=== PATIENT | female | born 1940 | race Two or more races ===

== ENCOUNTER 2025-08-01 12:18 | Emergency (ER) | payer MEDICARE, BC ==
[~2025-08-01] VITALS: Ht 170.2 cm; Wt 52.2 kg
[2025-08-01] MEDS ORDERED: HYDROCODONE/APAP 10/325MG TABLET ONE (14:04)
[2025-08-01] MEDS: HYDROCODONE/APAP 10/325MG TABLET PO ONE (14:15)
[2025-08-01 15:16] VITALS: BP 125/68; TEMP 97.9; O2SAT 99
== END 2025-08-01 15:16 | disposition home or self-care (01) ==
LOC: ER 12:38
DX: S20.229A Contusion of unspecified back wall of thorax, initial encounter (principal); Z88.1 Allergy status to other antibiotic agents; W10.9XXA Fall (on) (from) unspecified stairs and steps, initial encounter; Y93.89 Activity, other specified; Y92.89 Other specified places as the place of occurrence of the external cause; Y99.8 Other external cause status
CPT/HCPCS: 72128-TC; 72131-TC

== ENCOUNTER 2025-08-04 00:56 | Inpatient (IN) | payer BC, MEDICARE ==
[~2025-08-04] VITALS: Ht 170.2 cm; Wt 54.4 kg
[2025-08-04 01:42] LABS: PLATELET COUNT (AUTO) 209 K/uL (150-450); RED BLOOD CELL COUNT(AUTO) 4.13 MIL/uL (4.0-5.2); RED CELL DISTRIBUTION WIDTH 13.4 % (11.5-15.0); WHITE BLOOD COUNT (AUTO) 7.7 K/uL (4.3-11.0)
[2025-08-04 01:47] LABS: CALCIUM, SERUM 8.7 mg/dL (8.5-10.1); CREATININE 0.7 mg/dL (0.6-1.3); SODIUM SERUM 140.0 mmol/L (136-145); UREA NITROGEN, BLOOD 23.0 mg/dL (7-18)
[2025-08-04 01:53] LABS: ASPARTATE AMINOTRANSFERASE 25.0 U/L (15-37); PHOSPHORUS 2.9 mg/dL (2.5-4.9); TOTAL PROTEIN, SERUM 7.1 g/dL (6.4-8.2)
[2025-08-04 03:42] LABS: APPEARANCE,URINE CLEAR (CLEAR); BLOOD, URINE NEGATIVE Ery/uL (NEGATIVE); LEUKOCYTE ESTERASE ,URINE NEGATIVE (NEGATIVE); NITRITE, URINE NEGATIVE (NEGATIVE); UGLUCOSE NEGATIVE (NEGATIVE)
[2025-08-04 03:55] LABS: ADD URINE CULTURE YES; SQUAMOUS EPITHELIAL CELL,UR Moderate /HPF (None Seen)
[2025-08-04] MEDS ORDERED: MAG HYDROX/AL HYDROX/SIMETH 30 ML UDC PO PRN (04:00)
[2025-08-04] MEDS ORDERED: TEMAZEPAM 15 MG CAPSULE PO PRN (04:00)
[2025-08-04] MEDS ORDERED: Z GUARD REMEDY 4 OZ OINT TP PRN (04:00)
[2025-08-04 04:30] VITALS: BP 120/54; TEMP 97.9; O2SAT 99
[2025-08-04 04:37] VITALS: BP 120/54; TEMP 97.9; O2SAT 99
[2025-08-04] MEDS: PANTOPRAZOLE 40 MG TABLET.DR PO SCH (07:46)
[2025-08-04 08:00] VITALS: BP 112/54; TEMP 97.7; O2SAT 99
[2025-08-04] MEDS: IV NS 0.9% 1,000 ML IV PRN (09:05)
[2025-08-04] MEDS: CEFTRIAXONE 1 G in IV D5W 50 ML IV SCH (12:10)
[2025-08-04] MEDS: ONDANSETRON HCL/PF 4 MG/2 ML VIAL IVP PRN (12:22)
[2025-08-04 16:00] VITALS: BP 110/46; TEMP 97.5; O2SAT 98
[2025-08-04] MEDS: HYDROCODONE/APAP 5/325MG TABLET PO PRN (17:51)
[2025-08-04 20:00] VITALS: BP 100/51; TEMP 97.5; O2SAT 98
[2025-08-05 07:01] LABS: PLATELET COUNT (AUTO) 207 K/uL (150-450); RED BLOOD CELL COUNT(AUTO) 4.05 MIL/uL (4.0-5.2); RED CELL DISTRIBUTION WIDTH 13.4 % (11.5-15.0); WHITE BLOOD COUNT (AUTO) 7.1 K/uL (4.3-11.0)
[2025-08-05 07:09] LABS: CALCIUM, SERUM 8.2 mg/dL (8.5-10.1); CREATININE 0.7 mg/dL (0.6-1.3); PHOSPHORUS 3.3 mg/dL (2.5-4.9); SODIUM SERUM 139.0 mmol/L (136-145); UREA NITROGEN, BLOOD 20.0 mg/dL (7-18)
[2025-08-05 08:00] VITALS: BP 108/51; TEMP 98.1; O2SAT 98
[2025-08-05] MEDS: DEXTROSE 50%-WATER 50 ML DISP.SYRIN IVP ONE (10:15)
[2025-08-05] MEDS ORDERED: BARIUM SULFATE 98% 135 ML SUSP.RECON PO ONE (10:19)
[2025-08-05 16:08] VITALS: BP 115/51; TEMP 98.1; O2SAT 98
[2025-08-05] MEDS: PROSOURCE / PROSTAT (PYXIS) 30 ML UDC PO SCH (16:08)
[2025-08-05 20:00] VITALS: BP 107/51; TEMP 98.4; O2SAT 97
[2025-08-06 07:00] VITALS: BP 124/64; TEMP 98.1
[2025-08-06 08:00] VITALS: BP 124/64; TEMP 98.1; O2SAT 98
[2025-08-06 08:06] LABS: PLATELET COUNT (AUTO) 218 K/uL (150-450); RED BLOOD CELL COUNT(AUTO) 4.09 MIL/uL (4.0-5.2); RED CELL DISTRIBUTION WIDTH 13.5 % (11.5-15.0); WHITE BLOOD COUNT (AUTO) 7.8 K/uL (4.3-11.0)
[2025-08-06 08:56] LABS: CALCIUM, SERUM 8.6 mg/dL (8.5-10.1); CREATININE 0.8 mg/dL (0.6-1.3); SODIUM SERUM 139.0 mmol/L (136-145); UREA NITROGEN, BLOOD 18.0 mg/dL (7-18)
[2025-08-06 16:00] VITALS: BP 120/57; TEMP 97.3; O2SAT 100
[2025-08-06] MEDS: ACETAMINOPHEN 325 MG TABLET PO PRN (18:51)
[2025-08-06 20:00] VITALS: BP 109/56; TEMP 97.7; O2SAT 100
[2025-08-07 07:00] LABS: PLATELET COUNT (AUTO) 218 K/uL (150-450); RED BLOOD CELL COUNT(AUTO) 4.13 MIL/uL (4.0-5.2); RED CELL DISTRIBUTION WIDTH 13.6 % (11.5-15.0); WHITE BLOOD COUNT (AUTO) 6.0 K/uL (4.3-11.0)
[2025-08-07 07:25] LABS: CALCIUM, SERUM 8.5 mg/dL (8.5-10.1); CREATININE 0.7 mg/dL (0.6-1.3); SODIUM SERUM 139.0 mmol/L (136-145); UREA NITROGEN, BLOOD 11.0 mg/dL (7-18)
[2025-08-07] MEDS ORDERED: ACET325T53 PO (09:27)
[2025-08-07] MEDS ORDERED: PANT40TA49 PO (09:27)
[2025-08-07] MEDS: POTASSIUM CHLORIDE 20 MEQ TAB.PRT.SR PO SCH (09:34)
[2025-08-07] MEDS: MAGNESIUM HYDROXIDE 30 ML UDC PO PRN (12:09)
== END 2025-08-07 13:00 | DRG 640 ==
LOC: ER 00:59 → MED 03:02
PROVIDERS: ADMIT Nurse Practitioner Acute Care; ATTEND Internal Medicine
PROC: 0HBRXZZ Excision of Toe Nail, External Approach (ICD-10-PCS; principal; 2025-08-04)
DX: E86.0 Dehydration (principal); E43 Unspecified severe protein-calorie malnutrition; G93.41 Metabolic encephalopathy; Z68.1 Body mass index [BMI] 19.9 or less, adult; R17 Unspecified jaundice; L60.2 Onychogryphosis; R41.0 Disorientation, unspecified; Z91.81 History of falling; R53.81 Other malaise; R29.6 Repeated falls; M79.672 Pain in left foot; M79.671 Pain in right foot; R79.89 Other specified abnormal findings of blood chemistry; Z88.1 Allergy status to other antibiotic agents; N64.9 Disorder of breast, unspecified
CPT/HCPCS: 36415; 70450-TC; 72128-TC; 72131-TC; 74230-TC; 80048-TC; 80053-TC; 81001; 82607-TC; 82962-TC; 83735-TC; 84100-TC; 84443-TC; 84484-TC; 85025-TC; 87086-TC; 92526; 92611; 97110-TC; 97116-TC; 97530-TC; 97535-TC; A4223; G0378; J0696; J2405; J7030; J7060